=== PATIENT | female | born 1990 | race African-American/Black ===

== ENCOUNTER 2016-12-24 07:43 | Emergency (ER) | payer OTHER ==
[~2016-12-24] VITALS: Ht 157.5 cm; Wt 72.6 kg
[2016-12-24] MEDS: ONDANSETRON 4 MG ORAL DISINTEGRATING TAB (S0181) PO ONE ×2 (09:19→09:23)
[2016-12-24] MEDS ORDERED: AZIT250T3 PO (09:30)
[2016-12-24] MEDS ORDERED: METOCLOPRAMIDE 10 MG TAB PO ONE (09:30)
[2016-12-24] MEDS ORDERED: ACETAMINOPHEN 325 MG TAB PO ONE (09:30)
[2016-12-24] MEDS ORDERED: AZITHROMYCIN 250 MG TAB PO ONE (09:30)
[2016-12-24 09:33] VITALS: BP 129/74
[2016-12-24] MEDS ORDERED: CLAR1TAB2 PO (09:33)
[2016-12-24] MEDS ORDERED: [UNRECOGNIZED DRUG - OTHER] (09:33)
== END 2016-12-24 10:04 | disposition home or self-care (01) ==
LOC: M ED 08:53
DX: R51 Headache (principal); J01.90 Acute sinusitis, unspecified; R04.0 Epistaxis; R11.0 Nausea; Z32.01 Encounter for pregnancy test, result positive; J30.9 Allergic rhinitis, unspecified; Z87.891 Personal history of nicotine dependence

== ENCOUNTER 2016-12-31 12:12 | Emergency (ER) | payer OTHER ==
[~2016-12-31] VITALS: Ht 157.5 cm; Wt 72.6 kg
[~2016-12-31 12:12] MED LIST: AZIT250T3 PO; CLAR1TAB2 PO; [UNRECOGNIZED DRUG - OTHER]
[2016-12-31] MEDS ORDERED: PREN200C2 PO (12:37)
[2016-12-31 14:37] LABS: MEAN CORPUSCULAR HEMOGLOBIN 23.1 pg (27.0-33.0); MEAN CORPUSCULAR HGB CONC 29.9 g/dl (32.0-36.5); MEAN CORPUSCULAR VOLUME 77.3 fl (80.0-96.0); PLATELET COUNT, AUTOMATED 302 k/mm3 (150-450); RED CELL DISTRIBUTION WIDTH 18.3 % (11.5-14.5); WHITE BLOOD COUNT 6.9 K/mm3 (4.0-10.0)
[2016-12-31 14:55] LABS: ANISOCYTOSIS 2+; HYPOCHROMASIA 1+; POLYCHROMASIA 1+
[2016-12-31 14:56] LABS: MICROCYTOSIS 1+; POIKILOCYTOSIS 1+
[2016-12-31 15:02] LABS: ANION GAP 8 MEQ/L (8-16); BLOOD UREA NITROGEN 7 MG/DL (7-18); CARBON DIOXIDE LEVEL 27 MEQ/L (21-32); CHLORIDE LEVEL 103 MEQ/L (98-107); CREATININE FOR GFR 0.67 MG/DL (0.55-1.02); GLOMERULAR FILTRATION RATE > 60.0 (>60); GLUCOSE, FASTING 85 MG/DL (70-105); HCG, SERUM QUANTITATIVE 33888 MIU/ML; POTASSIUM SERUM 4.1 MEQ/L (3.5-5.1); SODIUM LEVEL 138 MEQ/L (136-145)
--- NOTE | 2016-12-31 15:25 | REP ---
Clinical: Pelvic pain. for dating and viability. Technique: Transabdominal and transvaginal first trimester obstetrical ultrasound with color Doppler evaluation. Findings: Anteverted uterus measures 10.3 x 5.8 x 5.9 cm and a gestational sac with yolk sac and pole is identified. pole measuring 4 mm corresponds to 6 weeks 0 days gestational age without heart activity identified. Maternal ovaries are normal with left corpus luteal cyst noted. No pelvic free fluid. Impression: Early intrauterine as described above without identifiable cardiac activity. Findings likely represent early live intrauterine as well as missed . Correlation with serial HCG levels recommended along with follow-up ultrasound as necessary. Signed by Catalino Feliciano MD 12/31/2016 03:17 P
[2016-12-31 15:40] VITALS: BP 134/72
== END 2016-12-31 15:42 | disposition home or self-care (01) ==
LOC: M ED 13:34
DX: O20.9 Hemorrhage in early pregnancy, unspecified (principal); Z3A.01 Less than 8 weeks gestation of pregnancy; Z79.899 Other long term (current) drug therapy; Z87.891 Personal history of nicotine dependence

== ENCOUNTER 2017-03-14 17:10 | Emergency (ER) | payer OTHER ==
[~2017-03-14] VITALS: Ht 157.5 cm; Wt 75.3 kg
[~2017-03-14 17:10] MED LIST changes: +PREN200C2 PO
[2017-03-14] MEDS ORDERED: TYLE500T78 PO (17:17)
[2017-03-14] MEDS ORDERED: METOCLOPRAMIDE INJ 10MG/2ML VIAL (J2765) IV ONE (17:30)
[2017-03-14] MEDS ORDERED: NS 1,000 ML IV ONE ×2 (17:30→18:30)
[2017-03-14 17:37] LABS: BASO % 0.1 % (0.0-1.0); EOS # 0.2 K/mm3 (0.0-0.50); EOS % 1.4 % (0.0-3.0); LARGE UNSTAINED CELL # 0.1 K/mm3 (0.0-0.4); LARGE UNSTAINED CELL % 0.7 % (0.0-4.0); LYMPH # 0.7 K/mm3 (1.5-6.5); LYMPH % 5.9 % (24.0-44.0); MEAN CORPUSCULAR HEMOGLOBIN 27.5 pg (27.0-33.0); MEAN CORPUSCULAR HGB CONC 32.6 g/dl (32.0-36.5); MEAN CORPUSCULAR VOLUME 84.3 fl (80.0-96.0); MONO # 0.3 K/mm3 (0.0-0.8); MONO % 2.9 % (0.0-5.0); PLATELET COUNT, AUTOMATED 191 k/mm3 (150-450); RED CELL DISTRIBUTION WIDTH 18.9 % (11.5-14.5); WHITE BLOOD COUNT 11.2 K/mm3 (4.0-10.0)
[2017-03-14 18:00] LABS: ALBUMIN 2.9 GM/DL (3.2-5.2); ALBUMIN/GLOBULIN RATIO 0.73 (1.00-1.93); ALKALINE PHOSPHATASE 65 U/L (45-117); ALT/SGPT 11 U/L (12-78); ANION GAP 8 MEQ/L (8-16); AST/SGOT 11 U/L (15-37); BILIRUBIN,DIRECT < 0.1 MG/DL (0.0-0.2); BILIRUBIN,TOTAL 0.2 MG/DL (0.2-1.0); BLOOD UREA NITROGEN 7 MG/DL (7-18); CALCIUM LEVEL 8.6 MG/DL (8.5-10.1); CARBON DIOXIDE LEVEL 25 MEQ/L (21-32); CHLORIDE LEVEL 102 MEQ/L (98-107); CREATININE FOR GFR 0.58 MG/DL (0.55-1.02); GLOMERULAR FILTRATION RATE > 60.0 (>60); GLUCOSE, FASTING 82 MG/DL (70-105); POTASSIUM SERUM 3.7 MEQ/L (3.5-5.1); SODIUM LEVEL 135 MEQ/L (136-145); TOTAL PROTEIN 6.9 GM/DL (6.4-8.2)
[2017-03-14] MEDS ORDERED: ACETAMINOPHEN TAB 650MG DOSE (2X325MG) As Ordered ONE (18:36)
[2017-03-14] MEDS ORDERED: ACETAMINOPHEN TAB 650MG DOSE (2X325MG) PO ONE (18:45)
[2017-03-14] MEDS ORDERED: REGL10TA6 PO (21:03)
[2017-03-14 21:37] VITALS: BP 125/63
== END 2017-03-14 21:39 | disposition home or self-care (01) ==
LOC: M ED 17:29
DX: O21.9 Vomiting of pregnancy, unspecified (principal); Z3A.16 16 weeks gestation of pregnancy
CPT/HCPCS: 36415; 80048; 80076; 83690; 85025; 96361; 96374; 99284; J2765